=== PATIENT | male | born 1945 | race Caucasian/White ===

== ENCOUNTER 2017-09-10 18:22 | Emergency (ER) | payer MEDICARE, BC ==
[~2017-09-10] VITALS: Ht 177.8 cm; Wt 81.8 kg
[~2017-09-10 18:22] MED LIST: ATOR40TA68 PO; CHOL2000 PO; LORA1TAB PO; OMEG-135 PO; PROP10TA6 PO; SILD100T51 PO; UBID100C24 PO
[2017-09-10 18:24] VITALS: Ht 177.8 cm; Wt 81.8 kg
[2017-09-10] MEDS ORDERED: SODIUM CHLORIDE 0.9% 1L BAG IV* STA (18:53)
[2017-09-10] MEDS ORDERED: HYDROmorphONE 1 MG/ML SYG IV STA (18:53)
[2017-09-10] MEDS ORDERED: ONDANSETRON 4 MG INJ IV STA (18:53)
[2017-09-10 19:24] LABS: BASOPHILS % 0.3 % (0.0-2.0); EOSINOPHILS # 0.2 10^3/ul (0.0-0.5); EOSINOPHILS % 1.6 % (0.0-7.0); HEMOGLOBIN 15.8 g/dl (14.0-18.0); LYMPHOCYTES % 14.5 % (15.0-51.0); MEAN CORPUSCULAR HEMOGLOBIN 29.4 pg (29.0-33.0); MEAN CORPUSCULAR HGB CONC 34.3 g/dl (32.0-37.0); MEAN CORPUSCULAR VOLUME 85.5 fl (82.0-101.0); MEAN PLATELET VOLUME 10.9 fl (7.4-10.4); MONOCYTE # 1.5 10^3/ul (0.3-0.9); MONOCYTES % 10.3 % (0.0-11.0); NEUTROPHIL # 10.3 10^3/ul (1.6-7.5); NEUTROPHILS % 72.9 % (39.0-77.0); PLATELET COUNT 247 10^3/UL (140-415); RED BLOOD COUNT 5.38 10^6/ul (4.70-6.10); RED CELL DISTRIBUTION WIDTH 14.6 % (11.5-14.5)
[2017-09-10 19:41] LABS: INR 0.99; PROTIME 13.1 Sec (12.2-14.2)
[2017-09-10 19:42] LABS: PARTIAL THROMBOPLASTIN TIME 25.9 Sec (25.0-35.0)
[2017-09-10 19:44] LABS: ALANINE AMINOTRANSFERASE 43 IU/L (13-69); ALBUMIN 4.4 g/dl (3.3-4.9); ALBUMIN/GLOBULIN RATIO 1.41; ALKALINE PHOSPHATASE 84 IU/L (42-121); ANION GAP 16 (8-16); ASPARTATE AMINO TRANSFERASE 26 IU/L (15-46); BILIRUBIN,INDIRECT 0.9 mg/dl (0-1.1); BILIRUBIN,TOTAL 0.9 mg/dl (0.2-1.3); BLOOD UREA NITROGEN 21 mg/dl (7-20); CALCIUM 9.6 mg/dl (8.4-10.2); CARBON DIOXIDE 25 mmol/L (21-31); CHLORIDE 105 mmol/L (97-110); CREATININE 1.13 mg/dl (0.61-1.24); GLUCOSE 124 mg/dl (70-220); POTASSIUM 4.2 mmol/L (3.5-5.1); SODIUM 142 mmol/L (135-144); TOTAL PROTEIN 7.5 g/dl (6.1-8.1)
[2017-09-10 19:57] LABS: TROPONIN-I < 0.012 ng/ml (0.00-0.12)
--- NOTE | 2017-09-10 20:22 | RADRPT ---
PROCEDURE: CT Abdomen and Pelvis without contrast. CLINICAL INDICATION: Abdominal and pelvic pain. TECHNIQUE: CT scan of the abdomen and pelvis without contrast was performed. Coronal and sagittal reformatted images were obtained from the axial source images. Images were reviewed on a high-resolu [employer] PACS workstation. Total exam DLP is 964.85 mGy-cm. CTDIvol is 15.95 mGy. One or more of the f ollowing dose reduction techniques were used: Automated exposure control, adjustment of the mA and/o r kV according to patient size, use of iterative reconstruction technique. DICOM images are availabl e. COMPARISON: None. FINDINGS: There is mild linear atelectasis at the right lung base and to a lesser extent at the left lung base . The lung bases are otherwise normal. There is no pleural effusion. The heart size is normal and th ere is no pericardial effusion. There is coronary artery calcification. The liver is normal in size and attenuation. There is no focal hepatic lesion. The gallbladder and bile ducts are normal. The spleen is normal in size. There is no focal splenic lesion. Both adrenals are normal with no enlargement or mass. The pancreas is unremarkable with no mass or evidence of pancreatitis. There is no solid renal mass or hydronephrosis. There are small benign bilateral renal cysts. There are multiple small nonobstructing bilateral renal calculi. There is no ureteral calculus on either s maday. The abdominal aorta is not dilated. Calcification is present in the aorta consistent with atheroscle rosis. There is no retroperitoneal lymphadenopathy or mass. There is no pelvic lymphadenopathy or mass. There are bladder diverticula with a left posterior diverticulum measuring up to 5.7 cm. The bladder and distal ureters are otherwise unremarkable. The appendix is well seen and appears normal. There is diverticulosis of the colon without evidence of diverticulitis. There has been prior sigmoi d colon surgery with surgical ann noted. There is no free fluid or free gas. There are degenerative changes of the spine. The osseous structures are otherwise unremarkable with no fracture or lytic lesion. There is an intramuscular lipoma of the adductor muscles of the right t high. IMPRESSION: 1. Mild atelectasis at both lung bases. 2. Coronary artery calcification. 3. Small benign bilateral renal cysts, unchanged. 4. Small nonobstructing bilateral renal calculi, also unchanged. 5. Atherosclerosis. 6. Diverticula of the bladder, similar to the prior study with the largest measuring 5.7 cm. 7. Normal appendix. 8. Diverticulosis of the colon without evidence of diverticulitis. 9. Prior sigmoid colon surgery. 10. 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 11. Degenerative changes of the spine. 12. Otherwise unremarkable CT scan of the abdomen and pelvis. RPTAT: QQ .Mio Kim MD, MD Date Time Electronically viewed and signed by .Mio Kim MD, MD on 09/10/2017 20:21 .R/
[2017-09-10 21:20] VITALS: TEMP 98.6
--- NOTE | 2017-09-10 22:11 | ERD ---
ER Documentation Chief Complaint Chief Complaint ABDOMINAL PAIN AND NAUSEA X 2 DAYS HPI This is a very pleasant 72-year-old male who presents to the emergency room complaining of abdominal pain and nausea for at least 2 days. The pain got severely worse and the patient had a vasovagal episode in triage with near syncope. The patient describes diffuse cramping abdominal pain that is 10 out of 10. He has multiple surgeries in the past and multiple histories of bowel obstructions. He denies any significant vomiting, no fevers or chills or travel. He states that he had a regular bowel movement several hours ago. ROS All systems reviewed and are negative except as per history of present illness. Medications Home Meds Reported Medications Sildenafil Citrate* (Viagra*) 100 Mg Tablet, 100 MG PO DAILY Y for DIRECTED, TAB 04/04/15 Propranolol Hcl* (Propranolol Hcl*) 10 Mg Tablet, 10 MG PO DAILY Y for TREMORS, TAB 04/04/15 Lorazepam* (Lorazepam*) 1 Mg Tablet, 1 MG PO HS Y for SLEEP, TAB 04/04/15 Ubidecarenone (Coq-10) 100 Mg Capsule, 100 MG PO DAILY 04/04/15 Fish Oil* (Fish Oil*) 1,000 Mg Cap, 1000 MG PO DAILY, CAP 04/04/15 Cholecalciferol* (Vitamin D3*) 2,000 Unit Cap, 2000 UNIT PO DAILY, CAP 04/04/15 Atorvastatin* (Atorvastatin*) 40 Mg Tablet, 40 MG PO HS, TAB 04/04/15 Allergies Allergies: Coded Allergies: Sulfa (Sulfonamide Antibiotics) (Verified Allergy, Mild, RASH, 04/04/15) meperidine (Verified Allergy, Unknown, 04/04/15) PMhx/Soc History of Surgery: Yes (CHOLECYSTECTOMY, ROTATOR CUFF VIC.SHOULDER,COLON RESE CTION,TURP) Anesthesia Reaction: No Hx Neurological Disorder: No Hx Respiratory Disorders: No Hx Cardiac Disorders: No Hx Psychiatric Problems: No Hx Miscellaneous Medical Probl: No Hx Alcohol Use: No Hx Substance Use: No Hx Tobacco Use: No Smoking Status: Never smoker FmHx Family History: No diabetes Physical Exam Vitals Vital Signs Date Time Temp Pulse Resp B/P Pulse Ox O2 Delivery O2 Flow Rate FiO2 09/10/17 21:20 98.6 75 14 112/76 98 2.0 09/10/17 21:01 77 16 119/74 99 09/10/17 18:24 98.6 91 19 170/94 96 Physical Exam General: Pallor is noted initially but the patient is quickly regaining color in his face Head: Normocephalic, atraumatic. Eyes: Pupils equally reactive, EOM intact ENT: Moist mucous membranes Neck: Supple, no lymphadenopathy Respiratory: Lungs clear bilaterally, no distress Cardiovascular: RRR, no murmurs, rubs, or gallops Abdominal: Soft, protuberant with slightly decreased bowel sounds with mild diffuse tenderness but no peritonitis : Deferred MSK: No edema, no unilateral swelling, 5/5 strength Neurologic: Alert and oriented, moving all extremities, normal speech, no focal weakness, no cerebellar signs Skin: No rash Psych: Normal mood Result Diagram: 09/10/17185409/10/171854 Results 24 hrs Laboratory Tests Test 09/10/17 18:55 White Blood Count 14.010^3/ul Red Blood Count 5.3810^6/ul Hemoglobin 15.8g/dl Hematocrit 46.0% Mean Corpuscular Volume 85.5fl Mean Corpuscular Hemoglobin 29.4pg Mean Corpuscular Hemoglobin Concent 34.3g/dl Red Cell Distribution Width 14.6% Platelet Count 93754^3/UL Mean Platelet Volume 10.9fl Neutrophils % 72.9% Lymphocytes % 14.5% Monocytes % 10.3% Eosinophils % 1.6% Basophils % 0.3% Nucleated Red Blood Cells % 0.0/100WBC Neutrophils # 10.310^3/ul Lymphocytes # 2.010^3/ul Monocytes # 1.510^3/ul Eosinophils # 0.210^3/ul Basophils # 0.010^3/ul Nucleated Red Blood Cells # 0.010^3/ul Prothrombin Time 13.1Sec Prothrombin Time Ratio 1.0 INR International Normalized Ratio 0.99 Activated Partial Thromboplast Time 25.9Sec Sodium Level 142mmol/L Potassium Level 4.2mmol/L Chloride Level 105mmol/L Carbon Dioxide Level 25mmol/L Anion Gap 16 Blood Urea Nitrogen 21mg/dl Creatinine 1.13mg/dl Glucose Level 124mg/dl Lactic Acid Level 1.7mmol/L Calcium Level 9.6mg/dl Total Bilirubin 0.9mg/dl Direct Bilirubin 0.00mg/dl Indirect Bilirubin 0.9mg/dl Aspartate Amino Transf (AST/SGOT) 26IU/L Alanine Aminotransferase (ALT/SGPT) 43IU/L Alkaline Phosphatase 84IU/L Troponin I < 0.012ng/ml Total Protein 7.5g/dl Albumin 4.4g/dl Globulin 3.10g/dl Albumin/Globulin Ratio 1.41 Lipase 50U/L Current Medications Medications (Trade) Dose Ordered Sig/Qasim Route PRN Reason Start Time Stop Time Status Last Admin Dose Admin Hydromorphone HCl (Dilaudid) 0.5 mg ONCE STAT IV 09/10/17 18:53 09/10/17 18:55 DC 09/10/17 19:29 Ondansetron HCl (Zofran Inj) 4 mg ONCE STAT IV 09/10/17 18:53 09/10/17 18:55 DC 09/10/17 19:30 Sodium Chloride (NS) 2,540 ml BOLUS OVER 2 HOURS STAT IV* 09/10/17 18:53 09/10/17 18:55 DC 09/10/17 20:55 Procedures/MDM EKG, MONITORS, & DIAGNOSTIC IMAGING: EKG: I reviewed and interpreted a 12-lead EKG. Rhythm: Normal sinus rhythm Ectopy: None Intervals: No abnormalities ST segments: No elevations or depressions T waves: No contiguous inversions CT abdomen and pelvis IMPRESSION: 1. Mild atelectasis at both lung bases. 2. Coronary artery calcification. 3. Small benign bilateral renal cysts, unchanged. 4. Small nonobstructing bilateral renal calculi, also unchanged. 5. Atherosclerosis. 6. Diverticula of the bladder, similar to the prior study with the largest measuring 5.7 cm. 7. Normal appendix. 8. Diverticulosis of the colon without evidence of diverticulitis. 9. Prior sigmoid colon surgery. 10. 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 11. Degenerative changes of the spine. 12. Otherwise unremarkable CT scan of the abdomen and pelvis. RPTAT: QQ LAB INTERPRETATION: Slight leukocytosis, no significant anemia, normal lactic acid MEDICAL DECISION MAKING: The patient presents with severe abdominal pain. It should be noted that the patient had a vasovagal episode at triage, he notes a prodrome of pain to his abdomen. This is not consistent with seizure or significant syncope such as cardiac arrhythmia. The patient had a clear pain response and vagal response. He has a rapid return to baseline. The patient has multiple bowel obstructions in the past and has abdominal pain prompting CT imaging of the abdomen and pelvis ER COURSE: The patient has slight leukocytosis but otherwise laboratory testing is unrevealing. CT imaging shows no evidence of bowel obstruction. On repeat exam the patient's symptoms are dramatically improved. He received IV fluids and pain medication. Repeat abdominal exam is also improved. I discussed p.o. challenge versus inpatient hospitalization versus discharge. The patient prefers discharge which I believe is reasonable. He understands strict return precautions. I kept the patient and/or family informed of laboratory and diagnostic imaging results throughout the emergency room course. DISPOSITION PLAN: We discussed follow up with the patient's primary care doctor within 24 to 48 hours as needed. We also discussed return to the emergency room for worsening symptoms or worsening condition. Outpatient referral: [None required] Discharge Medications: He has Reglan at home Departure Diagnosis: Primary Impression: Abdominal pain Abdominal location: generalized Qualified Code: R10.84 - Generalized abdominal pain Additional Impressions: Near syncope Leukocytosis Leukocytosis type: unspecified Qualified Code: D72.829 - Leukocytosis, unspecified type Condition: Stable Patient Instructions: Abdominal Pain Referrals: [facility] YOU HAVE RECEIVED A MEDICAL SCREENING EXAM AND THE RESULTS INDICATE THAT YOU DO NOT HAVE A CONDITION THAT REQUIRES URGENT TREATMENT IN THE EMERGENCY DEPARTMENT. FURTHER EVALUATION AND TREATMENT OF YOUR CONDITION CAN WAIT UNTIL YOU ARE SEEN IN YOUR DOCTORS OFFICE WITHIN THE NEXT 1-2 DAYS. IT IS YOUR RESPONSIBILITY TO MAKE AN APPOINTMENT FOR FOLOW-UP CARE. IF YOU HAVE A PRIMARY DOCTOR --you should call your primary doctor and schedule an appointment IF YOU DO NOT HAVE A PRIMARY DOCTOR YOU CAN CALL OUR PHYSICIAN REFERRAL HOTLINE AT IF YOU CAN NOT AFFORD TO SEE A PHYSICIAN YOU CAN CHOSE FROM THE FOLLOWING [facility] [address] [facility] [address] [facility] [address] [facility] [address] [facility] [address] [facility]. [facility] [address] [facility] [facility] YOU HAVE RECEIVED A MEDICAL SCREENING EXAM AND THE RESULTS INDICATE THAT YOU DO NOT HAVE A CONDITION THAT REQUIRES URGENT TREATMENT IN THE EMERGENCY DEPARTMENT. FURTHER EVALUATION AND TREATMENT OF YOUR CONDITION CAN WAIT UNTIL YOU ARE SEEN IN YOUR DOCTORS OFFICE WITHIN THE NEXT 1-2 DAYS. IT IS YOUR RESPONSIBILITY TO MAKE AN APPOINTMENT FOR FOLOW-UP CARE. IF YOU HAVE A PRIMARY DOCTOR --you should call your primary doctor and schedule and appointment IF YOU DO NOT HAVE A PRIMARY DOCTOR YOU CAN CALL OUR PHYSICIAN REFERRAL HOTLINE AT . IF YOU CAN NOT AFFORD TO SEE A PHYSICIAN YOU CAN CHOSE FROM THE FOLLOWING [facility] INSTITUTIONS: [facility] [address] [place] [address] [facility] [address] [place] [address] [facility] [address] [place] [address] Additional Instructions: Call your primary care doctor TOMORROW for an appointment during the next 1 WEEK.Tell the typing secretary that you were referred from this facility.See the doctor sooner or return here if your condition worsens before your appointment time. REGINA WEAVER MD Sep 10, 2017 22:10
[2017-09-10 22:19] VITALS: BP 112/76; PULSE 75; RESP 16
== END 2017-09-10 22:20 | disposition home or self-care (01) ==
LOC: E/R 18:22
DX: D72.829 Elevated white blood cell count, unspecified (principal); R55 Syncope and collapse
CPT/HCPCS: 36415; 74176; 80053; 83605; 83690; 84484; 85025; 85610; 85730; 87040; 93005; 96374; 96375; 99285; J1170; J2405; J7030

== ENCOUNTER 2018-05-09 22:05 | Emergency (ER) | END 2018-05-10 03:13 | disposition home or self-care (01) ==

== ENCOUNTER 2018-09-22 19:49 | Inpatient (IN) | END 2018-09-24 14:50 | disposition home or self-care (01) | DRG 390 ==

== ENCOUNTER 2019-05-13 20:07 | Inpatient (IN) | payer MEDICARE, BC ==
[~2019-05-13] VITALS: Ht 177.8 cm; Wt 78.0 kg
[~2019-05-13 20:07] MED LIST changes: +CALC500T91 PO; -CHOL2000 PO; +CHOL200073 PO; -LORA1TAB PO; -PROP10TA6 PO; -SILD100T51 PO
[2019-05-13] MEDS ORDERED: HYDROmorphONE 1 MG/ML SYG IV STA (20:58)
[2019-05-13] MEDS ORDERED: SOD CHLORIDE 0.9% 1,000 ML IV STA (20:58)
[2019-05-13] MEDS ORDERED: ONDANSETRON 4 MG INJ IV STA (20:58)
--- NOTE | 2019-05-13 21:02 | ERD ---
ER Documentation Chief Complaint Chief Complaint AP AND N/V X TODAY. HPI This is 74-year-old male with a history of multiple small bowel obstructions who is here because he is having abdominal distention with bilious vomiting today as well as several rounds of watery stool. He says he had this before when he has bowel obstruction. He has had no fever no chest pain no dysuria hematuria. He has a history of multiple abdominal surgeries ROS All systems reviewed and are negative except as per history of present illness. Medications Home Meds Reported Medications Magnesium Oxide* (Magnesium Oxide*) 400 Mg Tablet, 400 MG PO DAILY, TAB 05/13/19 Cyproheptadine Hcl* (Cyproheptadine Hcl*) 4 Mg Tablet, 4 MG PO QHS, #90 TAB 05/13/19 Ondansetron (Ondansetron Odt) 4 Mg Tab.rapdis, 4 MG PO DAILY PRN for N/V 05/13/19 Naproxen* (Naproxen*) 500 Mg Tablet, 500 MG PO BID PRN for PAIN 05/13/19 Acetaminophen* (Acetaminophen*) 500 MG Extra Strength Tablet, 500 MG PO Q4H PRN for PAIN AND OR ELEVATED TEMP, TAB 05/13/19 Sildenafil Citrate* (Viagra*) 100 Mg Tablet, 100 MG PO DAILY, TAB 05/13/19 Melatonin (Melatonin) 10 Mg Tab.mphase, 10 MG PO HS, TAB 05/13/19 Propranolol Hcl* (Propranolol Hcl*) 10 Mg Tablet, 10 MG PO DAILY 05/13/19 Calcium Carbonate ([id number]) 500 Mg Tablet, 500 MG PO DAILY, TAB 09/22/18 Ubidecarenone (Coq-10) 100 Mg Capsule, 100 MG PO DAILY, CAP 09/22/18 [place]-3 Fatty Acids/Fish Oil (Fish Oil 1,000 mg Capsule) 1 Each Capsule, 1 EACH PO DAILY, CAP 09/22/18 Cholecalciferol (Vitamin D3) (VITAMIN D-3) 2,000 Unit Capsule, 2000 UNIT PO DAILY, CAP 09/22/18 Atorvastatin* (Atorvastatin*) 40 Mg Tablet, 40 MG PO QHS, #30 TAB 09/22/18 Allergies Allergies: Coded Allergies: Sulfa (Sulfonamide Antibiotics) (Unverified Allergy, Mild, RASH, 05/13/19) meperidine (Unverified Allergy, Unknown, 05/13/19) PMhx/Soc History of Surgery: Yes (Gall bladder removal, hernia repair x3, colon resection, shoulder sx bilat) Anesthesia Reaction: No Hx Neurological Disorder: Yes (cluster headaches, peripheral neuropathy) Hx Respiratory Disorders: No Hx Cardiac Disorders: No Hx Psychiatric Problems: No Hx Miscellaneous Medical Probl: No Hx Alcohol Use: No Hx Substance Use: No Hx Tobacco Use: No FmHx Family History: No coronary disease Physical Exam Vitals Vital Signs Date Temp Pulse Resp B/P (MAP) Pulse Ox O2 O2 Flow FiO2 Time Delivery Rate 05/13/19 90 20 123/90 100 Room Air 21:37 (101) 05/13/19 97.1 67 20 121/84 96 Room Air 20:30 (96) 05/13/19 97.1 74 20 121/84 95 20:23 (96) Physical Exam Const: Well-developed, well-nourished Head: Atraumatic, normocephalic Eyes: Normal Conjunctiva, PERRLA, EOMI, normal sclera, no nystagmus ENT: Normal External Ears, Nose and Mouth, moist mucus membranes. Neck: Full range of motion. No meningismus, no lymphadenopathy. Resp: Clear to auscultation bilaterally, no wheezing, rhonchi, rales Cardio: Regular rate and rhythm, no murmurs, S1 S2 present Abd: Soft, diffuse tenderness with distention, decreased bowel sounds. , Mild guarding no pulsitile abdominal masses or bruits Skin: No petechiae or rashes, no ecchymosis , no maculopapular rash Back: No midline or flank tenderness Ext: No cyanosis, or edema, FROM x 4, normal inspection, neurovascularly intact x 4 Neur: Awake and alert, STR 5/5 x 4, sensation intact x 4, no focal findings, cerebellum intact Psych: Normal Mood and Affect Result Diagram: 05/13/19204405/13/192044 Results 24 hrs Laboratory Tests Test 05/13/19 20:45 White Blood Count 12.5 10^3/ul Red Blood Count 5.44 10^6/ul Hemoglobin 15.2 g/dl Hematocrit 46.3 % Mean Corpuscular Volume 85.1 fl Mean Corpuscular Hemoglobin 27.9 pg Mean Corpuscular Hemoglobin Concent 32.8 g/dl Red Cell Distribution Width 15.2 % Platelet Count 284 10^3/UL Mean Platelet Volume 10.5 fl Immature Granulocytes % 0.600 % Neutrophils % 86.2 % Lymphocytes % 7.0 % Monocytes % 4.9 % Eosinophils % 1.0 % Basophils % 0.3 % Nucleated Red Blood Cells % 0.0 /100WBC Immature Granulocytes # 0.070 10^3/ul Neutrophils # 10.8 10^3/ul Lymphocytes # 0.9 10^3/ul Monocytes # 0.6 10^3/ul Eosinophils # 0.1 10^3/ul Basophils # 0.0 10^3/ul Nucleated Red Blood Cells # 0.0 10^3/ul Sodium Level 141 mmol/L Potassium Level 4.4 mmol/L Chloride Level 105 mmol/L Carbon Dioxide Level 26 mmol/L Anion Gap 10 Blood Urea Nitrogen 26 mg/dl Creatinine 1.26 mg/dl Est Glomerular Filtrat Rate mL/min mL/min Glucose Level 140 mg/dl Calcium Level 9.9 mg/dl Total Bilirubin 0.7 mg/dl Direct Bilirubin 0.00 mg/dl Indirect Bilirubin 0.7 mg/dl Aspartate Amino Transf (AST/SGOT) 44 IU/L Alanine Aminotransferase (ALT/SGPT) 36 IU/L Alkaline Phosphatase 93 IU/L Total Protein 7.6 g/dl Albumin 4.4 g/dl Globulin 3.20 g/dl Albumin/Globulin Ratio 1.37 Lipase 43 U/L Current Medications Medications Dose Sig/Qasim Start Time Status Last (Trade) Ordered Route PRN Stop Time Admin Dose Reason Admin Sodium 1,000 ml @ Q1H STAT 05/13/19 DC 05/13/19 Chloride 1,000 mls/hr IV 20:58 21:43 05/13/19 21:57 1 mg ONCE STAT 05/13/19 DC 05/13/19 Hydromorphone IV 20:58 21:43 HCl 05/13/19 21:00 (Dilaudid) Ondansetron 4 mg ONCE STAT 05/13/19 DC 05/13/19 HCl (Zofran IV 20:58 21:43 Inj) 05/13/19 21:00 Procedures/[address] [address] Radiology Main Line: [phone] DIAGNOSTIC IMAGING REPORT Patient: ALVARO BRAUN: 1945 Age: 74 Sex: M MR #: [id number] DOS: 05/13/192057 Ordering MD: BINTA COOK DO Location: E/R Room/Bed: PROCEDURE: CT ABDOMEN AND PELVIS WITH CONTRAST CLINICAL INDICATION: 74-year-old male. Abdominal pain. TECHNIQUE: CT scan of the abdomen and pelvis with contrast was performed on a multi-slice CT scanner utilizing axial imaging from the lung bases through the pubis symphysis. One or more the following does reduction techniques were utilized: Automated exposure control, adjustment of the mA/ or kV according to patient's size, or use of iterative reconstruction technique. Sagittal and coronal reformatted images were made. DICOM images are available for review. The CTDIvol = 13.82 mGy. DLP = 879.43 mGy.cm. CONTRAST: 100 cc Visipaque [id number] IV COMPARISON: CT abdomen pelvis 09/22/2018 FINDINGS: CT abdomen Visualized lung bases: Dependent changes posterior lower lobes. Subsegmental atelectasis/fibrosis anterior left and right lower lobes. No significant pleural or pericardial effusion. Liver: No focal lesion. Patent portal vein. Gallbladder and bile ducts: Previous cholecystectomy. Mildly dilated intrahepatic bile ducts, unchanged. No extrahepatic biliary ductal dilatation. Spleen: Normal appearance. Pancreas: Atrophic pancreas, unchanged. No mass or ductal dilatation. Adrenal glands: Normal appearance. Kidneys: Symmetric nephrograms. No hydronephrosis. Bilateral nonobstructing calcified renal stones, 2 mm or smaller. Bilateral renal cysts. Vasculature: No abdominal aortic aneurysm. Calcified plaque present. Negative IVC. Lymph nodes: No adenopathy. GI: No hiatal hernia. Mildly distended stomach. No gastric wall thickening. Mildly dilated air and fluid containing small bowel loops in the abdomen centrally and to the left of midline. The ileum and colon are not distended. Transition zone is in the left lower quadrant (series 601 images 28 - 31). Diverticulosis ascending, transverse and descending colon. Peritoneal cavity: No free fluid or free air. CT pelvis GI: Negative terminal ileum. Negative short appendix or appendiceal stump. Sigmoid diverticulosis. Previous sigmoid resection with anastomotic suture line. Negative rectum. : 5.8 x 4.2 cm urine filled urinary bladder diverticulum left posterior lateral urinary bladder wall. Two smaller urinary bladder diverticula are also identified. Normal appearing distal ureters. Negative prostate gland. Peritoneal cavity: No free fluid or loculated fluid collections. Calcified phleboliths. Lymph nodes: No adenopathy. Vascular structures: Possible DVT in the right common femoral vein extending into the right external iliac vein. Osseous structures: Previous right hip arthroplasty. Left hip osteoarthritis with chondrocalcinosis. No lytic or blastic lesions. L4-5 and L5-S1 disc degeneration. IMPRESSION: 1. Dilated air and fluid-filled small bowel loops, primarily jejunum. Ileus versus partial small bowel obstruction. Less small bowel is currently involved than on the 09/22/2018 exam. There is partial S B O, transition zone appears to be in the left lower quadrant. 2. Possible DVT right common femoral vein, extending into the right external iliac vein. 3. Multiple bladder diverticula. Number foreign bilateral nonobstructing renal stones, 2 mm or smaller in size. 4. Right hip prosthesis, new from 09/22/2018. 5. Dilated intrahepatic bile ducts, unchanged. RPTAT: HL[facility] Physician Ivelisse Date Time Electronically viewed and signed by Physician Ivelisse on 05/13/2019 23:38 RS/ CC: BINTA COOK DO [id number] Patient admitted to the hospital for partial SBO, will get an ultrasound of his right leg for DVT. We will put the NG tube and now get an ultrasound and give Lovenox and admit to the hospital. Consult general surgery Patient recently had hip surgery about 4 to 5 weeks ago. He is also been taking naproxen for pain to exercise caution with anticoagulation Departure Diagnosis: Primary Impression: Small bowel obstruction Additional Impression: Right leg DVT Affected thrombotic vein of extremity: femoral Chronicity: acute Qualified Codes: I82.411 - Acute embolism and thrombosis of right femoral vein Condition: Stable BINTA COOK DO May 13, 2019 21:02
[2019-05-13] MEDS ORDERED: VIA100 PO (21:52)
[2019-05-13] MEDS ORDERED: NAPR-688 PO (21:52)
[2019-05-13] MEDS ORDERED: CYPR4TAB PO (21:52)
[2019-05-13] MEDS ORDERED: PROP10TA6 PO (21:52)
[2019-05-13] MEDS ORDERED: MAGN400T28 PO (21:52)
[2019-05-13] MEDS ORDERED: ONDA4TAB14 PO (21:52)
[2019-05-13] MEDS ORDERED: MELA10TA2 PO (21:52)
[2019-05-13] MEDS ORDERED: ACET-141 PO (21:52)
[2019-05-13] MEDS ORDERED: SOD CHLORIDE 0.9% 1,000 ML IV SCH (23:48)
[2019-05-14] MEDS ORDERED: NACL 0.9% 3 ML SYG IV SCH
[2019-05-14] MEDS ORDERED: METOCLOPRAMIDE 10 MG INJ IV PRN
[2019-05-14] MEDS ORDERED: ONDANSETRON 4 MG INJ IV PRN
[2019-05-14] MEDS ORDERED: ENOXAPARIN 80 MG/0.8 ML SYG SC ONE
[2019-05-14] MEDS: ACETAMINOPHEN 325 MG TAB PO PRN (00:22)
[2019-05-14] MEDS: ONDANSETRON 4 MG INJ IV PRN ×3 (00:25→17:43)
[2019-05-14] MEDS: morphine 2 MG INJ IV PRN ×2 (00:26→09:33)
--- NOTE | 2019-05-14 02:41 | HP ---
Date/Time of Note Date/Time of Note DATE: 05/14/19 TIME: 02:40 Assessment/Plan VTE Prophylaxis Pharmacological prophylaxis: LMWH Lines/Catheters IV Catheter Type (from Nrs): Saline Lock Assessment/Plan Hospital Course This is a 74-year-old male being admitted to the telemetry floor for: #1 recurrent small bowel obstruction: History of multiple abdominal surgeries in the past. CT imaging study reviewed. General surgery has been consulted . Will insert NG tube and connect to low wall suction for gastrointestinal decompression. Chest x-ray to confirm placement. Pain management. N.p.o. except medications, maintenance fluids #2 questionable right lower extremity DVT: CT of the abdomen pelvis with contrast was suspicious for possible right femoral DVT. Venous Dopplers have been ordered. Patient was given a dose of Lovenox. #3 hyperlipidemia: Resume statin as indicated check lipid panel #4 migraines: Currently patient is asymptomatic. Will need to avoid NSAIDs at the current time if patient is found to have a DVT. #5 DVT GI prophylaxis: Lovenox, no GI prophylaxis indicated Further treatment strategy will be implemented as per the clinical course. Result Diagram: 05/13/19204405/13/192044 Results 24hrs Laboratory Tests Test 05/13/19 20:45 05/14/19 01:18 White Blood Count 12.5 #H Red Blood Count 5.44 Hemoglobin 15.2 Hematocrit 46.3 Mean Corpuscular Volume 85.1 Mean Corpuscular Hemoglobin 27.9 L Mean Corpuscular Hemoglobin Concent 32.8 Red Cell Distribution Width 15.2 H Platelet Count 284 # Mean Platelet Volume 10.5 H Immature Granulocytes % 0.600 H Neutrophils % 86.2 H Lymphocytes % 7.0 L Monocytes % 4.9 Eosinophils % 1.0 Basophils % 0.3 Nucleated Red Blood Cells % 0.0 Immature Granulocytes # 0.070 H Neutrophils # 10.8 H Lymphocytes # 0.9 Monocytes # 0.6 Eosinophils # 0.1 Basophils # 0.0 Nucleated Red Blood Cells # 0.0 Sodium Level 141 Potassium Level 4.4 Chloride Level 105 Carbon Dioxide Level 26 Anion Gap 10 Blood Urea Nitrogen 26 H Creatinine 1.26 H Est Glomerular Filtrat Rate mL/min Glucose Level 140 Calcium Level 9.9 Total Bilirubin 0.7 Direct Bilirubin 0.00 Indirect Bilirubin 0.7 Aspartate Amino Transf (AST/SGOT) 44 Alanine Aminotransferase (ALT/SGPT) 36 Alkaline Phosphatase 93 Total Protein 7.6 Albumin 4.4 Globulin 3.20 Albumin/Globulin Ratio 1.37 Lipase 43 Prothrombin Time 12.7 Prothrombin Time Ratio 1.0 INR International Normalized Ratio 0.94 Activated Partial Thromboplast Time 28.3 HPI/ROS Admit Date/Time Admit Date/Time May 13, 2019 at 23:49 Hx of Present Illness Chief complaint: Abdominal pain x1 day, This is a 74-year-old male with a history of multiple small bowel obstructions who presents to the emergency department complaining of abdominal pain x1 day. He reports nausea vomiting. He also reports that he is continued to have loose BMs. He denies fevers chest pain or hematuria. On CT of the abdomen pelvis with contrast in the emergency department he was found to have small bowel obstruction. He also was found to have a possible right femoral DVT. He was given a dose of Lovenox. He denies any recent travel or lengthy car rides. He denies any history of blood clots in the past or family history of blood clots. He denies any right lower extremity pain or redness. Venous Doppler ultrasound is pending. Allergies: Sulfa, meperidine Medications: Atorvastatin 40 mg p.o. daily Vitamin D3 Naproxen 400 mg p.o. twice daily PRN ROS Const: As per HPI Eyes : No pain discharge or redness or change in visual acuity ENT: No pain, sore throat, congestion, congestion, dysphagia or discharge Respiratory: No shortness of breath, cough, sputum, wheezing, or pleuritic pain Cardiovascular: No chest pain, palpitation, PND, or edema GI : As per HPI Genitourinary: No dysuria, hematuria, flank pain , discharge or CVA tenderness Musculoskeletal: No joint pain, back pain, neck pain, restricted range of motion in neck or joints Skin: No rash, bruising or hives Neuro: No headache, dizziness, syncope, seizure, focal weakness Endocrine: No polyuria, polydipsia, temperature intolerance Psych: No hallucination, depression, anxiety or suicidal ideation PMH/Family/Social Past Medical History Hyperlipidemia Medications Current Medications Sodium Chloride 1,000 ml @ 80 mls/hr [id number] IV ; Start 05/13/19 at 23:48; Stop 05/14/19 at 12:17 Sodium Chloride 1,000 ml @ 75 mls/hr [id number] IV ; Start 05/13/19 at 23:56 IV Flush (NS 3 ml) 3 ml PER PROTOCOL IV ; Start 05/14/19 at 00:00 Ondansetron HCl (Zofran Inj) 4 mg Q6H PRN IV NAUSEA/VOMITING Last administered on 05/14/19at 00:25; Admin Dose 4 MG; Start 05/14/19 at 00:00 Metoclopramide HCl (Reglan) 10 mg Q6H PRN IV NAUSEA/VOMITING Last administered on 05/14/19at 00:25; Admin Dose 10 MG; Start 05/14/19 at 00:00 Acetaminophen (Tylenol Tab) 650 mg Q6H PRN PO .PAIN 1-3 OR TEMP Last administered on 05/14/19at 00:22; Admin Dose 650 MG; Start 05/14/19 at 00:00 Morphine Sulfate (morphine) 2 mg Q4H PRN IV .SEVERE PAIN 7-10; Start 05/14/19 at 00:00 Coded Allergies: Sulfa (Sulfonamide Antibiotics) (Unverified Allergy, Mild, RASH, 05/13/19) meperidine (Unverified Allergy, Unknown, 05/13/19) Past Surgical History Right hip replacement, hernia repair Past Surgical Hx: bowel resection, cholecystectomy, other Family History Significant Family History: no pertinent family hx Social History Alcohol Use: none Smoking Status: Never smoker Drug Use: none Exam/Review of Systems Vital Signs Vitals Vital Signs Date Temp Pulse Resp B/P (MAP) Pulse Ox O2 O2 Flow FiO2 Time Delivery Rate 05/14/19 97.1 90 20 121/88 100 Room Air 01:34 (99) Exam Exam General: Patient is a pleasant male currently lying in bed in no acute distress HEENT: Atraumatic, normocephalic. The pupils are equal, round and reactive. Extraocular motor are intact, NG tube in place draining dark gastric contents Neck: Supple with full range of motion. No rigidity or meningismus Chest: Nontender Lungs: Clear to auscultation bilaterally no crackles rales or wheezing Heart: Normal S1-S2, Regular rhythm and rate. No murmur, S3, or S4 Abdomen: Soft , nontender to palpation nondistended , hypoactive bowel sounds, no guarding no rebound tenderness , No masses or organomegaly. No costovertebral temporal angle mass Extremities: Normal to inspection, no edema no cyanosis, nontender to palpation bilaterally Neurologic: Normal mental status, speech normal, cranial nerves II through XII are intact, motor and sensory are intact, Additional Comments PROCEDURE: CT ABDOMEN AND PELVIS WITH CONTRAST CLINICAL INDICATION: 74-year-old male. Abdominal pain. TECHNIQUE: CT scan of the abdomen and pelvis with contrast was performed on a multi-slice CT scanner utilizing axial imaging from the lung bases through the pubis symphysis. One or more the following does reduction techniques were utilized: Automated exposure control, adjustment of the mA/ or kV according to patient's size, or use of iterative reconstruction technique. Sagittal and coronal reformatted images were made. DICOM images are available for review. The CTDIvol = 13.82 mGy. DLP = 879.43 mGy.cm. CONTRAST: 100 cc Visipaque [id number] IV COMPARISON: CT abdomen pelvis 09/22/2018 FINDINGS: CT abdomen Visualized lung bases: Dependent changes posterior lower lobes. Subsegmental atelectasis/fibrosis anterior left and right lower lobes. No significant pleural or pericardial effusion. Liver: No focal lesion. Patent portal vein. Gallbladder and bile ducts: Previous cholecystectomy. Mildly dilated intrahepatic bile ducts, unchanged. No extrahepatic biliary ductal dilatation. Spleen: Normal appearance. Pancreas: Atrophic pancreas, unchanged. No mass or ductal dilatation. Adrenal glands: Normal appearance. Kidneys: Symmetric nephrograms. No hydronephrosis. Bilateral nonobstructing calcified renal stones, 2 mm or smaller. Bilateral renal cysts. Vasculature: No abdominal aortic aneurysm. Calcified plaque present. Negative IVC. Lymph nodes: No adenopathy. GI: No hiatal hernia. Mildly distended stomach. No gastric wall thickening. Mildly dilated air and fluid containing small bowel loops in the abdomen centrally and to the left of midline. The ileum and colon are not distended. Transition zone is in the left lower quadrant (series 601 images 28 - 31). Diverticulosis ascending, transverse and descending colon. Peritoneal cavity: No free fluid or free air. CT pelvis GI: Negative terminal ileum. Negative short appendix or appendiceal stump. Sigmoid diverticulosis. Previous sigmoid resection with anastomotic suture line. Negative rectum. : 5.8 x 4.2 cm urine filled urinary bladder diverticulum left posterior lateral urinary bladder wall. Two smaller urinary bladder diverticula are also identified. Normal appearing distal ureters. Negative prostate gland. Peritoneal cavity: No free fluid or loculated fluid collections. Calcified phleboliths. Lymph nodes: No adenopathy. Vascular structures: Possible DVT in the right common femoral vein extending into the right external iliac vein. Osseous structures: Previous right hip arthroplasty. Left hip osteoarthritis with chondrocalcinosis. No lytic or blastic lesions. L4-5 and L5-S1 disc degeneration. IMPRESSION: 1. Dilated air and fluid-filled small bowel loops, primarily jejunum. Ileus versus partial small bowel obstruction. Less small bowel is currently involved than on the 09/22/2018 exam. There is partial S B O, transition zone appears to be in the left lower quadrant. 2. Possible DVT right common femoral vein, extending into the right external iliac vein. 3. Multiple bladder diverticula. Number foreign bilateral nonobstructing renal stones, 2 mm or smaller in size. 4. Right hip prosthesis, new from 09/22/2018. 5. Dilated intrahepatic bile ducts, unchanged. RPTAT: HL[facility] Physician Ivelisse Date Time Electronically viewed and signed by Physician Ivelisse on 05/13/2019 23:38 RS/ CC: BINTA COOK DO [id number] PETROS RODRIGUEZ May 14, 2019 02:41
[2019-05-14 02:44] VITALS: Ht 177.8 cm; Wt 78.0 kg
[2019-05-14 02:52] VITALS: BP 132/68; PULSE 92; RESP 18
[2019-05-14] MEDS: SOD CHLORIDE 0.9% 1,000 ML IV SCH ×3 (03:00→17:49)
[2019-05-14 07:22] VITALS: BP 104/67; PULSE 97; RESP 20
[2019-05-14 11:37] VITALS: BP 113/76; PULSE 97; RESP 20
--- NOTE | 2019-05-14 13:44 | PN ---
Date/Time of Note Date/Time of Note DATE: 05/14/19 TIME: 13:36 Assessment/Plan VTE Prophylaxis Risk score (from Ns)>0 risk: 6 SCD applied (from Ns): No SCD contraindicated: DVT (???) Pharmacological prophylaxis: heparin Lines/Catheters [facility] Assessment/Plan Hospital Course 74-year-old male who presented to the emergency room with abdominal pain, nausea vomiting and multiple loose bowel movements admitted and managed for the follo win. Recurrent small bowel obstruction -Diagnosis confirmed on CT scan, patient has had multiple episodes in the past, always managed conservatively [place]-patient has had multiple abdominal brock geries starting with an abdominal abscess and subsequent postoperative hernias that had to be repaired. -Patient currently has NG tube that is still draining dark fluid -Continue to monitor drain, was volume and drain has reduced consider small bowel follow-through possibly tomorrow -General surgery consultation obtained, await review and recommendations -In interim continue current supportive care 2. Recurrent diarrhea: -CT shows no colitis however in view of diarrhea and SBO will begin empiric treatment for colitis with IV antibiotics -Send stool for C. difficile assay -Continue fluid hydration 3. Mild acute renal insufficiency -Likely from diarrhea from the above -Renal function, creatinine levels normalized at this time, continue monitoring 4. Leukocytosis, likely reactive -Continue monitoring 5. History of cluster headaches -Patient takes naproxen a lot, under the care of neurology as outpatient, is not requiring anything at this time, but wants to know that he can be seen by neurologist if necessary -PRN medications 6. History of dyslipidemia 7. Concern for right lower extremity DVT from CT with contrast -Lower extremity ULTRASOUND did not show said DVT, will discuss with hematology which is the more superior imaging study for clots, for now hold off on treatme nt dose anticoagulation and continue prophylactic doses only. Further interventions per clinical course and change management consultant recommendations Continue supportive care Result Diagram: 05/14/19 0533 05/14/19 0533 Results 24hrs Laboratory Tests Test 05/13/19 20:45 05/14/19 01:18 05/14/19 05:33 White Blood Count 12.5 #H 13.8 H Red Blood Count 5.44 4.93 Hemoglobin 15.2 14.0 Hematocrit 46.3 41.9 L Mean Corpuscular Volume 85.1 85.0 Mean Corpuscular Hemoglobin 27.9 L 28.4 L Mean Corpuscular Hemoglobin Concent 32.8 33.4 Red Cell Distribution Width 15.2 H 15.1 H Platelet Count 284 # 251 Mean Platelet Volume 10.5 H 10.2 Immature Granulocytes % 0.600 H 0.300 Neutrophils % 86.2 H 85.7 H Lymphocytes % 7.0 L 2.7 L Monocytes % 4.9 10.4 Eosinophils % 1.0 0.4 Basophils % 0.3 0.5 Nucleated Red Blood Cells % 0.0 0.0 Immature Granulocytes # 0.070 H 0.040 H Neutrophils # 10.8 H 11.8 H Lymphocytes # 0.9 0.4 L Monocytes # 0.6 1.4 H Eosinophils # 0.1 0.1 Basophils # 0.0 0.1 Nucleated Red Blood Cells # 0.0 0.0 Sodium Level 141 140 Potassium Level 4.4 4.0 Chloride Level 105 107 Carbon Dioxide Level 26 23 Anion Gap 10 10 Blood Urea Nitrogen 26 H 24 H Creatinine 1.26 H 1.05 Est Glomerular Filtrat Rate mL/min Glucose Level 140 121 Calcium Level 9.9 9.0 Total Bilirubin 0.7 1.0 Direct Bilirubin 0.00 0.00 Indirect Bilirubin 0.7 1.0 Aspartate Amino Transf (AST/SGOT) 44 38 Alanine Aminotransferase (ALT/SGPT) 36 43 Alkaline Phosphatase 93 83 Total Protein 7.6 6.3 # Albumin 4.4 3.9 Globulin 3.20 2.40 Albumin/Globulin Ratio 1.37 1.62 Lipase 43 Prothrombin Time 12.7 Prothrombin Time Ratio 1.0 INR International Normalized Ratio 0.94 Activated Partial Thromboplast Time 28.3 Hemoglobin A1c 5.5 Magnesium Level 1.9 Triglycerides Level 72 Cholesterol Level 157 LDL Cholesterol, Calculated 92 HDL Cholesterol 51 Cholesterol/HDL Ratio 3.0 Thyroid Stimulating Hormone (TSH) 0.328 L Subjective 24 Hr Interval Summary Free Text/Dictation no new issues, NGT is uncomfortable, still having recurrent diarrhea, no abd pain however Exam/Review of Systems Exam Vitals Vital Signs Date Temp Pulse Resp B/P (MAP) Pulse Ox O2 O2 Flow FiO2 Time Delivery Rate 05/14/19 98.0 97 20 113/76 92 Room Air 11:37 (88) Exam Constitutional: alert, oriented Head: atraumatic, normocephalic, NGT still draining dark brown fluid Neck: non-tender, supple Respiratory: clear to auscultation, diminished RLL Cardiovascular: regular rate and rhythm Gastrointestinal: S/ NT / ND / +BS Extremities: no edema, good radial pulses, moves all extremities Results Results 24hrs Laboratory Tests Test 05/13/19 20:45 05/14/19 01:18 05/14/19 05:33 White Blood Count 12.5 #H 13.8 H Red Blood Count 5.44 4.93 Hemoglobin 15.2 14.0 Hematocrit 46.3 41.9 L Mean Corpuscular Volume 85.1 85.0 Mean Corpuscular Hemoglobin 27.9 L 28.4 L Mean Corpuscular Hemoglobin Concent 32.8 33.4 Red Cell Distribution Width 15.2 H 15.1 H Platelet Count 284 # 251 Mean Platelet Volume 10.5 H 10.2 Immature Granulocytes % 0.600 H 0.300 Neutrophils % 86.2 H 85.7 H Lymphocytes % 7.0 L 2.7 L Monocytes % 4.9 10.4 Eosinophils % 1.0 0.4 Basophils % 0.3 0.5 Nucleated Red Blood Cells % 0.0 0.0 Immature Granulocytes # 0.070 H 0.040 H Neutrophils # 10.8 H 11.8 H Lymphocytes # 0.9 0.4 L Monocytes # 0.6 1.4 H Eosinophils # 0.1 0.1 Basophils # 0.0 0.1 Nucleated Red Blood Cells # 0.0 0.0 Sodium Level 141 140 Potassium Level 4.4 4.0 Chloride Level 105 107 Carbon Dioxide Level 26 23 Anion Gap 10 10 Blood Urea Nitrogen 26 H 24 H Creatinine 1.26 H 1.05 Est Glomerular Filtrat Rate mL/min Glucose Level 140 121 Calcium Level 9.9 9.0 Total Bilirubin 0.7 1.0 Direct Bilirubin 0.00 0.00 Indirect Bilirubin 0.7 1.0 Aspartate Amino Transf (AST/SGOT) 44 38 Alanine Aminotransferase (ALT/SGPT) 36 43 Alkaline Phosphatase 93 83 Total Protein 7.6 6.3 # Albumin 4.4 3.9 Globulin 3.20 2.40 Albumin/Globulin Ratio 1.37 1.62 Lipase 43 Prothrombin Time 12.7 Prothrombin Time Ratio 1.0 INR International Normalized Ratio 0.94 Activated Partial Thromboplast Time 28.3 Hemoglobin A1c 5.5 Magnesium Level 1.9 Triglycerides Level 72 Cholesterol Level 157 LDL Cholesterol, Calculated 92 HDL Cholesterol 51 Cholesterol/HDL Ratio 3.0 Thyroid Stimulating Hormone (TSH) 0.328 L Imaging Imaging PROCEDURE: CT ABDOMEN AND PELVIS WITH CONTRAST CLINICAL INDICATION: 74-year-old male. Abdominal pain. TECHNIQUE: CT scan of the abdomen and pelvis with contrast was performed on a multi-slice CT scanner utilizing axial imaging from the lung bases through the pubis symphysis. One or more the following does reduction techniques were utilized: Automated exposure control, adjustment of the mA/ or kV according to patient's size, or use of iterative reconstruction technique. Sagittal and coronal reformatted images were made. DICOM images are available for review. The CTDIvol = 13.82 mGy. DLP = 879.43 mGy.cm. CONTRAST: 100 cc Visipaque [id number] IV COMPARISON: CT abdomen pelvis 09/22/2018 FINDINGS: CT abdomen Visualized lung bases: Dependent changes posterior lower lobes. Subsegmental atelectasis/fibrosis anterior left and right lower lobes. No significant pleural or pericardial effusion. Liver: No focal lesion. Patent portal vein. Gallbladder and bile ducts: Previous cholecystectomy. Mildly dilated intrahepat ic bile ducts, unchanged. No extrahepatic biliary ductal dilatation. Spleen: Normal appearance. Pancreas: Atrophic pancreas, unchanged. No mass or ductal dilatation. Adrenal glands: Normal appearance. Kidneys: Symmetric nephrograms. No hydronephrosis. Bilateral nonobstructing calcified renal stones, 2 mm or smaller. Bilateral renal cysts. Vasculature: No abdominal aortic aneurysm. Calcified plaque present. Negative IVC. Lymph nodes: No adenopathy. GI: No hiatal hernia. Mildly distended stomach. No gastric wall thickening. Mildly dilated air and fluid containing small bowel loops in the abdomen centrally and to the left of midline. The ileum and colon are not distended. T ransition zone is in the left lower quadrant (series 601 images 28 - 31). Diverticulosis ascending, transverse and descending colon. Peritoneal cavity: No free fluid or free air. CT pelvis GI: Negative terminal ileum. Negative short appendix or appendiceal stump. Sigmoid diverticulosis. Previous sigmoid resection with anastomotic suture line. Negative rectum. : 5.8 x 4.2 cm urine filled urinary bladder diverticulum left posterior lateral urinary bladder wall. Two smaller urinary bladder diverticula are also identified. Normal appearing distal ureters. Negative prostate gland. Peritoneal cavity: No free fluid or loculated fluid collections. Calcified phleboliths. Lymph nodes: No adenopathy. Vascular structures: Possible DVT in the right common femoral vein extending i nto the right external iliac vein. Osseous structures: Previous right hip arthroplasty. Left hip osteoarthritis with chondrocalcinosis. No lytic or blastic lesions. L4-5 and L5-S1 disc degeneration. IMPRESSION: 1. Dilated air and fluid-filled small bowel loops, primarily jejunum. Ileus vers us partial small bowel obstruction. Less small bowel is currently involved than on the 09/22/2018 exam. There is partial S B O, transition zone appears to be in the left lower quadrant. 2. Possible DVT right common femoral vein, extending into the right external iliac vein. 3. Multiple bladder diverticula. Number foreign bilateral nonobstructing renal stones, 2 mm or smaller in size. 4. Right hip prosthesis, new from 09/22/2018. 5. Dilated intrahepatic bile ducts, unchanged. RPTAT: HLRS Physician Ivelisse Date Time Electronically viewed and signed by Janet Campo Physician on 05/13/2019 23:38 RS/ CC: BINTA COOK DO [id number] PROCEDURE: Ultrasound examination of the right lower extremity with Doppler. CLINICAL INDICATION: Right leg pain and swelling. TECHNIQUE: Multiple sonographic images of the right lower extremity were performed with reich scale and color Doppler. COMPARISON: None. FINDINGS: The right common femoral, superficial femoral and popliteal veins demonstrate normal color flow, waveforms, compression and response augmentation. There is no evidence of deep venous thrombosis. IMPRESSION: No evidence of deep venous thrombosis within the right lower extremity. .Porfirio Francois MD, MD Date Time Electronically viewed and signed by .Porfirio Francois MD, MD on 05/14/2019 03:46 .T/ CC: BINTA COOK DO [id number] Medications Medication Current Medications Sodium Chloride 1,000 ml @ 75 mls/hr [id number] IV Last administered on 05/14/19 03:00; Admin Dose 75 MLS/HR; Start 05/13/19 at 23:56 IV Flush (NS 3 ml) 3 ml PER PROTOCOL IV ; Start 05/14/19 at 00:00 Ondansetron HCl (Zofran Inj) 4 mg Q6H PRN IV NAUSEA/VOMITING Last administered on 05/14/19 09:19; Admin Dose 4 MG; Start 05/14/19 at 00:00 Metoclopramide HCl (Reglan) 10 mg Q6H PRN IV NAUSEA/VOMITING Last administered on 05/14/19 00:25; Admin Dose 10 MG; Start 05/14/19 at 00:00 Acetaminophen (Tylenol Tab) 650 mg Q6H PRN PO .PAIN 1-3 OR TEMP Last administered on 05/14/19at 00:22; Admin Dose 650 MG; Start 05/14/19 at 00:00 Morphine Sulfate (morphine) 2 mg Q4H PRN IV .SEVERE PAIN 7-10 Last administered on 05/14/19 09:33; Admin Dose 2 MG; Start 05/14/19 at 00:00 YISSEL SCHNEIDER May 14, 2019 13:44
--- NOTE | 2019-05-14 13:54 | CONS ---
Assessment/Plan Assessment/Plan Assessment/Plan (Daily) Small bowel obstruction most probably secondary to adhesions. NG tube seems like works for now. We will continue NG tube decompression Consultation Date/Type/Reason Admit Date/Time May 13, 2019 at 23:49 Date of Consultation: May 14, 2019 Type of Consult Surgical Reason for Consultation Small bowel obstruction Date/Time of Note DATE: 05/14/19 TIME: 13:52 Hx of Present Illness Chief complaint: Abdominal pain x1 day, This is a 74-year-old male with a history of multiple small bowel obstructions who presents to the emergency department complaining of abdominal pain x1 day. He reports nausea vomiting. He also reports that he is continued to have loose BMs. He denies fevers chest pain or hematuria. On CT of the abdomen pelvis with contrast in the emergency department he was found to have small bowel obstruction. He also was found to have a possible right femoral DVT. He was given a dose of Lovenox. He denies any recent travel or lengthy car rides. He denies any history of blood clots in the past or family history of blood clots. He denies any right lower extremity pain or redness. Venous Doppler ultrasound is pending. Constitutional: no complaints, improved Eyes: no complaints ENT: no complaints Respiratory: no complaints Cardiovascular: no complaints Gastrointestinal: pain, nausea, vomiting Genitourinary: no complaints Musculoskeletal: no complaints Skin: no complaints Neurologic: no complaints Endocrine: no complaints Lymphatic: no complaints Psychological: no complaints, nl mood/affect Immunologic: no complaints Past Medical History Medical History: gallstones, hypertension, other (Hyperlipidemia) Home Meds Reported Medications Magnesium Oxide* (Magnesium Oxide*) 400 Mg Tablet, 400 MG PO DAILY, TAB 05/13/19 Cyproheptadine Hcl* (Cyproheptadine Hcl*) 4 Mg Tablet, 4 MG PO QHS, #90 TAB 05/13/19 Ondansetron (Ondansetron Odt) 4 Mg Tab.rapdis, 4 MG PO DAILY PRN for N/V 05/13/19 Naproxen* (Naproxen*) 500 Mg Tablet, 500 MG PO BID PRN for PAIN 05/13/19 Acetaminophen* (Acetaminophen*) 500 MG Extra Strength Tablet, 500 MG PO Q4H PRN for PAIN AND OR ELEVATED TEMP, TAB 05/13/19 Sildenafil Citrate* (Viagra*) 100 Mg Tablet, 100 MG PO DAILY, TAB 05/13/19 Melatonin (Melatonin) 10 Mg Tab.mphase, 10 MG PO HS, TAB 05/13/19 Propranolol Hcl* (Propranolol Hcl*) 10 Mg Tablet, 10 MG PO DAILY 05/13/19 Calcium Carbonate ([id number]) 500 Mg Tablet, 500 MG PO DAILY, TAB 09/22/18 Ubidecarenone (Coq-10) 100 Mg Capsule, 100 MG PO DAILY, CAP 09/22/18 [place]-3 Fatty Acids/Fish Oil (Fish Oil 1,000 mg Capsule) 1 Each Capsule, 1 EACH PO DAILY, CAP 09/22/18 Cholecalciferol (Vitamin D3) (VITAMIN D-3) 2,000 Unit Capsule, 2000 UNIT PO DAILY, CAP 09/22/18 Atorvastatin* (Atorvastatin*) 40 Mg Tablet, 40 MG PO QHS, #30 TAB 09/22/18 Medications Current Medications Sodium Chloride 1,000 ml @ 75 mls/hr [id number] IV Last administered on 05/14/19at 03:00; Admin Dose 75 MLS/HR; Start 05/13/19 at 23:56 IV Flush (NS 3 ml) 3 ml PER PROTOCOL IV ; Start 05/14/19 at 00:00 Ondansetron HCl (Zofran Inj) 4 mg Q6H PRN IV NAUSEA/VOMITING Last administered on 05/14/19at 09:19; Admin Dose 4 MG; Start 05/14/19 at 00:00 Metoclopramide HCl (Reglan) 10 mg Q6H PRN IV NAUSEA/VOMITING Last administered on 05/14/19at 00:25; Admin Dose 10 MG; Start 05/14/19 at 00:00 Acetaminophen (Tylenol Tab) 650 mg Q6H PRN PO .PAIN 1-3 OR TEMP Last administered on 05/14/19at 00:22; Admin Dose 650 MG; Start 05/14/19 at 00:00 Morphine Sulfate (morphine) 2 mg Q4H PRN IV .SEVERE PAIN 7-10 Last administered on 05/14/19at 09:33; Admin Dose 2 MG; Start 05/14/19 at 00:00 Metronidazole 100 ml @ 100 mls/hr Q8 IVPB ; Start 05/14/19 at 14:00; Status UNV Ciprofloxacin/ Dextrose 200 ml @ 200 mls/hr Q12 IVPB ; Start 05/14/19 at 14:00; Status UNV Allergies: Coded Allergies: Sulfa (Sulfonamide Antibiotics) (Unverified Allergy, Mild, RASH, 05/13/19) meperidine (Unverified Allergy, Unknown, 05/13/19) Past Surgical History Past Surgical Hx: bowel resection, cholecystectomy, other (Partial colectomy for possible diverticulitis, multiple incisional hernia repairs, the last incisional hernia repair was performed 2013. Hip replacement.) Family History Significant Family History: no pertinent family hx Social History Alcohol Use: none Smoking Status: Never smoker Drug Use: none Exam/Review of Systems Exam Vitals Vital Signs Date Temp Pulse Resp B/P (MAP) Pulse Ox O2 O2 Flow FiO2 Time Delivery Rate 05/14/19 98.0 97 20 113/76 92 Room Air 11:37 (88) Constitutional: alert, oriented, well developed Psych: no complaints, nl mood/affect Head: normocephalic, atraumatic Eyes: nl conjunctiva, EOMI, nl lids, nl sclera, PERRL ENMT: nl external ears & nose, nl lips & teeth, nl nasal mucosa & septum Neck: supple, non-tender Respiratory: clear to auscultation, normal air movement Cardiovascular: regular rate and rhythm, nl pulses Gastrointestinal: soft, other (Abdomen is moderately distended soft not tender. Well-healed midline scar without evidence of herniation.) Musculoskeletal: nl extremities to inspection, nl gait and stance Extremities: normal pulses Neurological: [employer] II-XII intact, nl mental status, nl speech, nl strength Skin: nl turgor; No rash or lesions Lymph: nl lymph nodes Results Result Diagram: 05/14/19 0533 05/14/19 0533 Results 24hrs Laboratory Tests Test 05/13/19 20:45 05/14/19 01:18 05/14/19 05:33 White Blood Count 12.5 #H 13.8 H Red Blood Count 5.44 4.93 Hemoglobin 15.2 14.0 Hematocrit 46.3 41.9 L Mean Corpuscular Volume 85.1 85.0 Mean Corpuscular Hemoglobin 27.9 L 28.4 L Mean Corpuscular Hemoglobin Concent 32.8 33.4 Red Cell Distribution Width 15.2 H 15.1 H Platelet Count 284 # 251 Mean Platelet Volume 10.5 H 10.2 Immature Granulocytes % 0.600 H 0.300 Neutrophils % 86.2 H 85.7 H Lymphocytes % 7.0 L 2.7 L Monocytes % 4.9 10.4 Eosinophils % 1.0 0.4 Basophils % 0.3 0.5 Nucleated Red Blood Cells % 0.0 0.0 Immature Granulocytes # 0.070 H 0.040 H Neutrophils # 10.8 H 11.8 H Lymphocytes # 0.9 0.4 L Monocytes # 0.6 1.4 H Eosinophils # 0.1 0.1 Basophils # 0.0 0.1 Nucleated Red Blood Cells # 0.0 0.0 Sodium Level 141 140 Potassium Level 4.4 4.0 Chloride Level 105 107 Carbon Dioxide Level 26 23 Anion Gap 10 10 Blood Urea Nitrogen 26 H 24 H Creatinine 1.26 H 1.05 Est Glomerular Filtrat Rate mL/min Glucose Level 140 121 Calcium Level 9.9 9.0 Total Bilirubin 0.7 1.0 Direct Bilirubin 0.00 0.00 Indirect Bilirubin 0.7 1.0 Aspartate Amino Transf (AST/SGOT) 44 38 Alanine Aminotransferase (ALT/SGPT) 36 43 Alkaline Phosphatase 93 83 Total Protein 7.6 6.3 # Albumin 4.4 3.9 Globulin 3.20 2.40 Albumin/Globulin Ratio 1.37 1.62 Lipase 43 Prothrombin Time 12.7 Prothrombin Time Ratio 1.0 INR International Normalized Ratio 0.94 Activated Partial Thromboplast Time 28.3 Hemoglobin A1c 5.5 Magnesium Level 1.9 Triglycerides Level 72 Cholesterol Level 157 LDL Cholesterol, Calculated 92 HDL Cholesterol 51 Cholesterol/HDL Ratio 3.0 Thyroid Stimulating Hormone (TSH) 0.328 L Medications Medication Current Medications Sodium Chloride 1,000 ml @ 75 mls/hr [id number] IV Last administered on 05/14/19at 03:00; Admin Dose 75 MLS/HR; Start 05/13/19 at 23:56 IV Flush (NS 3 ml) 3 ml PER PROTOCOL IV ; Start 05/14/19 at 00:00 Ondansetron HCl (Zofran Inj) 4 mg Q6H PRN IV NAUSEA/VOMITING Last administered on 05/14/19at 09:19; Admin Dose 4 MG; Start 05/14/19 at 00:00 Metoclopramide HCl (Reglan) 10 mg Q6H PRN IV NAUSEA/VOMITING Last administered on 05/14/19at 00:25; Admin Dose 10 MG; Start 05/14/19 at 00:00 Acetaminophen (Tylenol Tab) 650 mg Q6H PRN PO .PAIN 1-3 OR TEMP Last administered on 05/14/19at 00:22; Admin Dose 650 MG; Start 05/14/19 at 00:00 Morphine Sulfate (morphine) 2 mg Q4H PRN IV .SEVERE PAIN 7-10 Last administered on 05/14/19at 09:33; Admin Dose 2 MG; Start 05/14/19 at 00:00 Metronidazole 100 ml @ 100 mls/hr Q8 IVPB ; Start 05/14/19 at 14:00; Status UNV Ciprofloxacin/ Dextrose 200 ml @ 200 mls/hr Q12 IVPB ; Start 05/14/19 at 14:00; Status UNV JANE MENDOZA MD May 14, 2019 13:54
[2019-05-14] MEDS: metroNIDAZOLE 500 MG/NS (PMX) 100 ML IVPB SCH ×2 (14:16→23:39)
[2019-05-14 15:26] VITALS: BP 110/68; PULSE 89; RESP 20
[2019-05-14] MEDS: CIPROFLOXACIN 400MG/D5W 200 ML IVPB SCH ×2 (15:29→22:07)
[2019-05-14] MEDS ORDERED: ACETAMINOPHEN 325 MG TAB PO PRN ×2 (17:00)
[2019-05-14] MEDS ORDERED: FAMOTIDINE 20 MG TAB PO ONE (17:00)
[2019-05-14] MEDS: KETOROLAC 30 MG INJ IV PRN (17:23)
[2019-05-14 20:00] VITALS: BP 105/72; PULSE 90; RESP 18
[2019-05-14] MEDS: FAMOTIDINE 20 MG TAB PO SCH (21:00)
[2019-05-15] VITALS: BP 110/71; PULSE 82; RESP 19
[2019-05-15] MEDS: ONDANSETRON 4 MG INJ IV PRN ×2 (03:13→18:14)
[2019-05-15] MEDS: KETOROLAC 30 MG INJ IV PRN ×2 (03:18→18:14)
[2019-05-15 04:00] VITALS: BP 124/70; PULSE 79; RESP 18
[2019-05-15] MEDS: metroNIDAZOLE 500 MG/NS (PMX) 100 ML IVPB SCH ×3 (06:09→21:42)
--- NOTE | 2019-05-15 07:39 | PN ---
Date/Time of Note Date/Time of Note DATE: 05/15/19 TIME: 07:36 Assessment/Plan VTE Prophylaxis Risk score (from Ns)>0 risk: 5 SCD applied (from Nsg): No Lines/Catheters IV Catheter Type (from Nrs): Saline Lock Assessment/Plan Hospital Course 74-year-old male who presented to the emergency room with abdominal pain, nausea vomiting and multiple loose bowel movements admitted and managed for the followin. Recurrent small bowel obstruction -Diagnosis confirmed on CT scan, patient has had multiple episodes in the past, always managed conservatively -patient has had multiple abdominal surgeries starting with an abdominal abscess and subsequent postoperative hernias that had to be repaired. - 2. Recurrent diarrhea: -CT shows no colitis however in view of diarrhea and SBO, patient started on empiric treatment for colitis with IV antibiotics -Stool for C. difficile assay pending -Continue fluid hydration 3. Mild acute renal insufficiency -Likely from diarrhea from the above -Renal function, creatinine levels normalized at this time, continue monitoring 4. Leukocytosis, likely reactive -resolved 5. History of cluster headaches -Patient takes naproxen a lot, under the care of neurology as outpatient, is not requiring anything at this time, but wants to know that he can be seen by neur ologist if necessary -PRN medications 6. History of dyslipidemia 7. Concern for right lower extremity DVT from CT with contrast -Lower extremity ULTRASOUND did not show said DVT, spoke with hematology, consider venogram to effectively r/o DVT. Will speak with radiology. Further interventions per clinical course and case consultant recommendations Continue supportive care Result Diagram: 05/15/19 0520 05/15/19 0520 Results 24hrs Laboratory Tests Test 05/15/19 05:20 White Blood Count 7.7 # Red Blood Count 4.51 L Hemoglobin 12.7 L Hematocrit 37.9 L Mean Corpuscular Volume 84.0 Mean Corpuscular Hemoglobin 28.2 L Mean Corpuscular Hemoglobin Concent 33.5 Red Cell Distribution Width 15.3 H Platelet Count 233 Mean Platelet Volume 10.1 Immature Granulocytes % 0.400 Neutrophils % 72.9 Lymphocytes % 10.7 L Monocytes % 14.1 H Eosinophils % 1.6 Basophils % 0.3 Nucleated Red Blood Cells % 0.0 Immature Granulocytes # 0.030 Neutrophils # 5.6 Lymphocytes # 0.8 Monocytes # 1.1 H Eosinophils # 0.1 Basophils # 0.0 Nucleated Red Blood Cells # 0.0 Sodium Level 140 Potassium Level 3.7 Chloride Level 109 Carbon Dioxide Level 25 Anion Gap 6 Blood Urea Nitrogen 19 Creatinine 1.18 Est Glomerular Filtrat Rate mL/min Glucose Level 89 Calcium Level 8.6 Exam/Review of Systems Exam Vitals Vital Signs Date Temp Pulse Resp B/P (MAP) Pulse Ox O2 O2 Flow FiO2 Time Delivery Rate 05/15/19 98.0 79 18 124/70 93 04:00 (88) 05/14/19 Room Air 15:26 Intake and Output 05/14/19 05/14/19 05/15/19 1515:00 23:00 07:00 IntakeIntake Total 1590 ml 300 ml OutputOutput Total 800 ml BalanceBalance 790 ml 300 ml Results Results 24hrs Laboratory Tests Test 05/15/19 05:20 White Blood Count 7.7 # Red Blood Count 4.51 L Hemoglobin 12.7 L Hematocrit 37.9 L Mean Corpuscular Volume 84.0 Mean Corpuscular Hemoglobin 28.2 L Mean Corpuscular Hemoglobin Concent 33.5 Red Cell Distribution Width 15.3 H Platelet Count 233 Mean Platelet Volume 10.1 Immature Granulocytes % 0.400 Neutrophils % 72.9 Lymphocytes % 10.7 L Monocytes % 14.1 H Eosinophils % 1.6 Basophils % 0.3 Nucleated Red Blood Cells % 0.0 Immature Granulocytes # 0.030 Neutrophils # 5.6 Lymphocytes # 0.8 Monocytes # 1.1 H Eosinophils # 0.1 Basophils # 0.0 Nucleated Red Blood Cells # 0.0 Sodium Level 140 Potassium Level 3.7 Chloride Level 109 Carbon Dioxide Level 25 Anion Gap 6 Blood Urea Nitrogen 19 Creatinine 1.18 Est Glomerular Filtrat Rate mL/min Glucose Level 89 Calcium Level 8.6 Medications Medication Current Medications Sodium Chloride 1,000 ml @ 75 mls/hr [id number] IV Last administered on 05/14/19at 17:49; Admin Dose 75 MLS/HR; Start 05/13/19 at 23:56 IV Flush (NS 3 ml) 3 ml PER PROTOCOL IV ; Start 05/14/19 at 00:00 Ondansetron HCl (Zofran Inj) 4 mg Q6H PRN IV NAUSEA/VOMITING Last administered on 05/15/19at 03:13; Admin Dose 4 MG; Start 05/14/19 at 00:00 Metoclopramide HCl (Reglan) 10 mg Q6H PRN IV NAUSEA/VOMITING Last administered on 05/14/19 00:25; Admin Dose 10 MG; Start 05/14/19 at 00:00 Acetaminophen (Tylenol Tab) 650 mg Q6H PRN PO .PAIN 1-3 OR TEMP Last administered on 05/14/19 00:22; Admin Dose 650 MG; Start 05/14/19 at 00:00 Morphine Sulfate (morphine) 2 mg Q4H PRN IV .SEVERE PAIN 7-10 Last administered on 05/14/19 09:33; Admin Dose 2 MG; Start 05/14/19 at 00:00 Metronidazole 100 ml @ 100 mls/hr Q8 IVPB Last administered on 05/15/19 06:09; Admin Dose 100 MLS/HR; Start 05/14/19 at 14:00 Ciprofloxacin/ Dextrose 200 ml @ 200 mls/hr Q12 IVPB Last administered on 05/14/19 22:07; Admin Dose 200 MLS/HR; Start 05/14/19 at 14:00 Ketorolac Tromethamine (Toradol) 30 mg Q6H PRN IV PAIN LEVEL 1-3 Last administered on 05/15/19 03:18; Admin Dose 30 MG; Start 05/14/19 at 17:00; Stop 05/17/19 at 16:59 Famotidine (Pepcid) 20 mg BID PO ; Start 05/14/19 at 21:00 YISSEL SCHNEIDER May 15, 2019 07:39
[2019-05-15 07:51] VITALS: BP 135/71; PULSE 73; RESP 20
[2019-05-15] MEDS: CIPROFLOXACIN 400MG/D5W 200 ML IVPB SCH ×2 (08:47→20:31)
[2019-05-15] MEDS: SOD CHLORIDE 0.9% 1,000 ML IV SCH ×2 (08:47→15:56)
[2019-05-15] MEDS: FAMOTIDINE 20 MG TAB PO SCH ×2 (08:48→09:00)
[2019-05-15] MEDS: ENOXAPARIN 40 MG/0.4 ML SYG SC SCH (09:03)
--- NOTE | 2019-05-15 10:21 | PN ---
Date/Time of Note Date/Time of Note DATE: 05/15/19 TIME: 10:19 Subjective Doing well. No abdominal pain. No further diarrhea. Objective Vitals Vital Signs Date Temp Pulse Resp B/P (MAP) Pulse Ox O2 O2 Flow FiO2 Time Delivery Rate 05/15/19 97.7 73 20 135/71 90 Room Air 07:51 (92) Intake and Output 05/14/19 05/14/19 05/15/19 1515:00 23:00 07:00 IntakeIntake Total 1590 ml 400 ml OutputOutput Total 800 ml 400 ml BalanceBalance 790 ml 0 ml Clear to auscultation bilaterally Regular rate and rhythm Soft nontender. Mildly distended. Normoactive bowel sounds No edema Nonfocal Results Result Diagram: 05/15/1951905/15/19519 Medications Medications Current Medications Sodium Chloride 1,000 ml @ 75 mls/hr [id number] IV Last administered on 05/15/19 08:47; Admin Dose 75 MLS/HR; Start 05/13/19 at 23:56 IV Flush (NS 3 ml) 3 ml PER PROTOCOL IV ; Start 05/14/19 at 00:00 Ondansetron HCl (Zofran Inj) 4 mg Q6H PRN IV NAUSEA/VOMITING Last administered on 05/15/19 03:13; Admin Dose 4 MG; Start 05/14/19 at 00:00 Metoclopramide HCl (Reglan) 10 mg Q6H PRN IV NAUSEA/VOMITING Last administered on 05/14/19 00:25; Admin Dose 10 MG; Start 05/14/19 at 00:00 Acetaminophen (Tylenol Tab) 650 mg Q6H PRN PO .PAIN 1-3 OR TEMP Last administered on 05/14/19 00:22; Admin Dose 650 MG; Start 05/14/19 at 00:00 Morphine Sulfate (morphine) 2 mg Q4H PRN IV .SEVERE PAIN 7-10 Last administered on 05/14/19 09:33; Admin Dose 2 MG; Start 05/14/19 at 00:00 Metronidazole 100 ml @ 100 mls/hr Q8 IVPB Last administered on 05/15/19 06:09; Admin Dose 100 MLS/HR; Start 05/14/19 at 14:00 Ciprofloxacin/ Dextrose 200 ml @ 200 mls/hr Q12 IVPB Last administered on 05/15/19at 08:47; Admin Dose 200 MLS/HR; Start 05/14/19 at 14:00 Ketorolac Tromethamine (Toradol) 30 mg Q6H PRN IV PAIN LEVEL 1-3 Last administered on 05/15/19at 03:18; Admin Dose 30 MG; Start 05/14/19 at 17:00; Stop 05/17/19 at 16:59 Enoxaparin Sodium (Lovenox) 40 mg DAILY SC Last administered on 05/15/19at 09:03; Admin Dose 40 MG; Start 05/15/19 at 09:00 Famotidine (Pepcid Iv) 20 mg DAILY IV ; Start 05/15/19 at 09:30 VTE Prophylaxis Risk score (from Ns)>0 risk: 5 SCD applied (from Nsg): No SCD contraindication: other Pharmacological prophylaxis: LMWH Lines/Catheters IV Catheter Type: Saline Lock Mac in Place: No Assessment/Plan Assessment/Plan 74-year-old male with recurrent SBO Acute colitis. Rule out C. difficile Continue NG tube to suction Continue IV antibiotics Surgery follow-up is appreciated NATE LOUIS MD May 15, 2019 10:21
[2019-05-15 11:29] VITALS: BP 142/84; PULSE 86; RESP 20
[2019-05-15] MEDS: FAMOTIDINE 20 MG INJ IV SCH (11:59)
[2019-05-15 17:08] VITALS: BP 140/81; PULSE 84; RESP 20
[2019-05-15 19:19] VITALS: BP 126/81; PULSE 89; RESP 20
[2019-05-16 00:33] VITALS: BP 114/73; PULSE 74; RESP 18
[2019-05-16 05:00] VITALS: BP 133/84; PULSE 79; RESP 20
[2019-05-16] MEDS: SOD CHLORIDE 0.9% 1,000 ML IV SCH (05:30)
[2019-05-16] MEDS: metroNIDAZOLE 500 MG/NS (PMX) 100 ML IVPB SCH ×2 (05:30→14:00)
[2019-05-16] MEDS: ACETAMINOPHEN 325 MG TAB PO PRN ×2 (08:43→15:26)
[2019-05-16] MEDS: CIPROFLOXACIN 400MG/D5W 200 ML IVPB SCH (08:43)
[2019-05-16 09:25] VITALS: BP 129/78; PULSE 78; RESP 20
[2019-05-16] MEDS: ENOXAPARIN 40 MG/0.4 ML SYG SC SCH (09:36)
[2019-05-16] MEDS: FAMOTIDINE 20 MG INJ IV SCH (09:37)
[2019-05-16] MEDS ORDERED: TAMS-14 PO (10:08)
--- NOTE | 2019-05-16 10:09 | PDOCDIS ---
Discharge Instructions CONDITION [id number] Patient Condition: [id number] Good HOME CARE INSTRUCTIONS: [id number] Diet Instructions: [id number] Regular ACTIVITY: [id number] Activity Restrictions: [id number] No Restrictions FOLLOW UP/APPOINTMENTS Follow-up Plan pcp 1 week NATE LOUIS MD May 16, 2019 10:09
[2019-05-16] MEDS ORDERED: TAMSULOSIN (SR) 0.4 MG CAP PO SCH ×2 (10:37→21:00)
[2019-05-16 12:37] VITALS: BP 117/82; PULSE 71; RESP 20
[2019-05-16 14:57] VITALS: BP 119/77; PULSE 72; RESP 22
--- NOTE | 2019-05-16 17:31 | DS ---
DATE OF ADMISSION: 05/13/2019 DATE OF DISCHARGE: 05/16/2019 DISCHARGE DIAGNOSES: 1. A 74-year-old male with recurrent small-bowel obstruction, resolved. 2. Hyperlipidemia. 3. Urinary retention due to benign prostatic hyperplasia. 4. History of migraine. HOSPITAL COURSE: A 74-year-old male with history of multiple abdominal surgeries in the past, presen vj to Emergency Room with complaint of abdominal pain x1 day associated with nausea and vomiting. T he patient also reported having loose bowel movements. He had a CAT scan of the abdomen and pelvis d one in the Emergency Room showed possible small-bowel obstruction. The patient was n.p.o. after admi ssion. NG tube was placed. Initially, there was significant amount of output. He was seen in consu ltation by Dr. Mendoza. I ordered upper GI with small bowel followup on the following day. There was no further evidence of small-bowel obstruction. Patient developed acute urinary retention during the hospitalization and Fo carl catheter was placed. This is mainly due to narcotics and benign prostatic hyperplasia. I starte d Flomax. The patient is in a stable condition for discharge if he tolerates his diet. I prescribed Flomax 0.4 mg daily. If patient is unable to urinate after Mac catheter is removed, he may have t o be discharged with a leg Mac and follow up with his primary care provider. I contacted his and I left her a voicemail regarding the plan of care. Dictated By: NATE FLEMING/NTS Conf#: [id number] DID#: [id number] CC: PETROS RODRIGUEZ MD; JANE MENDOZA;*EndCC*
[2019-05-16] MEDS ORDERED: ATORVASTATIN 40 MG TAB PO SCH (21:00)
[2019-05-16] MEDS ORDERED: CYPROHEPTADINE 4 MG TAB PO SCH (21:00)
== END 2019-05-16 16:57 | disposition home or self-care (01) | DRG 390 ==
LOC: E/R 20:07 → 6WM 23:49
PROVIDERS: ADMIT Family Medicine; ATTEND Internal Medicine
DX: K56.600 Partial intestinal obstruction, unspecified as to cause (principal); G62.9 Polyneuropathy, unspecified; E78.5 Hyperlipidemia, unspecified; N28.9 Disorder of kidney and ureter, unspecified; N40.1 Benign prostatic hyperplasia with lower urinary tract symptoms; R33.8 Other retention of urine; I10 Essential (primary) hypertension; Z88.2 Allergy status to sulfonamides; Z96.641 Presence of right artificial hip joint
CPT/HCPCS: 71045; 74177; 74250; 80048; 80053; 80061; 83036; 83690; 83735; 84439; 84443; 85025; 85610; 85730; 87075; 93971; 96374; 96375; 97161; A4310; J0744; J1170; J1650; J1885; J2270; J2405; J2765; J7030